=== PATIENT | male | born 1930 | race Caucasian/White ===

== ENCOUNTER 2016-04-06 20:28 | Inpatient (IN) | payer MEDICARE ==
--- NOTE | 2016-04-06 21:01 | EDM.PDOC ---
ED HPI GENERAL MEDICAL PROBLEM - General Chief Complaint: Chest Pain Stated Complaint: CHEST PAIN SOB Time Seen by Provider: 04/06/16 21:01 - History of Present Illness INITIAL COMMENTS - FREE TEXT/NARRATIVE: 86-year-old male presents emergency room with chest pain. When the patient was first interviewed he said everything above his belly button hurt this was later narrowed down to left lower chest. This pain has been going on for about 4 days now. It is not associated with increased shortness of breath and it does not radiate it seems to be left-sided and substernal however sometimes he gets a sensation this all around his chest. This pain has a significant positional component is most aggravated when he is laying on one of his 2 sides. Patient has a history of coronary artery disease he's nearly 30 years from a bypass surgery. Patient is not on blood thinners but he does take a daily aspirin. Patient lives at home and is fairly functional. Patient denies any leg pain or leg swelling. Left Chest Pain Score (Numeric/FACES): 4 - Related Data Allergies Allergy/AdvReac Type Severity Reaction Status Date / Time No Known Allergies Allergy Verified 04/06/16 20:40 Home Meds: Home Meds Metoprolol Tartrate 50 mg PO BID 08/16/13 [History] Baby Aspirin. 2 tab PO DAILY 10/11/13 [History] Acetaminophen/HYDROcodone [[place] 325-5 MG] 1 - 2 tab PO Q6H PRN #21 tab [Rx] Multivitamin/Iron/Folic Acid [Centrum Complete Multivit] 1 tab PO DAILY [History] amLODIPine Besylate/Benazepril [Amlodipine-Benazepril 10-20 MG] 10 - 20 mg PO DAILY 10/22/15 [History] Tamsulosin HCl 0.4 mg PO DAILY 04/06/16 [History] Past Medical History Cardiovascular History: Reports: CAD, Heart Failure, Heart murmur, Hypertension , SOB on exertion Respiratory History: Reports: COPD Gastrointestinal History: Reports: GERD Genitourinary History: Reports: BPH Musculoskeletal History: Reports: Arthritis, Osteoarthritis Oncologic (Cancer) History: Reports: Other (see below) Other Oncologic History: lip cancer - Past Surgical History HEENT Surgical History: Reports: Cataract surgery Cardiovascular Surgical History: Reports: Coronary artery bypass Social & Family History - Family History Family Medical History: Noncontributory - Tobacco Use Smoking Status *Q: Former Smoker Years of Tobacco use: 65 Packs/Tins Daily: 1 Used Tobacco, but Quit: Yes Month Tobacco Last Used: 14 yrs Tobacco Use Comment: quit 40 years ago Second Hand Smoke Exposure: No - Caffeine Use Caffeine Use: Reports: None - Alcohol Use Days Per Week of Alcohol Use: 0 - Recreational Drug Use Recreational Drug Use: No - Living Situation & Occupation Living situation: Reports: Occupation: retired ED ROS GENERAL - Review of Systems Review Of Systems: See Below Constitutional: Reports: no symptoms HEENT: Reports: No symptoms Respiratory: Reports: pleuritic chest pain. Denies: shortness of breath, cough , sputum Cardiovascular: Reports: Chest pain. Denies: Dyspnea on exertion, Palpitations GI/Abdominal: Reports: No symptoms : Reports: no symptoms Musculoskeletal: Reports: no symptoms Skin: Reports: no symptoms Neurological: Reports: no symptoms Psychiatric: Reports: No symptoms Hematologic/Lymphatic: Reports: no symptoms Immunologic: Reports: no symptoms ED EXAM, GENERAL - Physical Exam Exam: See Below Exam Limited By: No limitations General Appearance: alert, no apparent distress Head: atraumatic, normocephalic Neck: normal inspection, supple, non-tender, full range of motion. No: lymphadenopathy (L), lymphadenopathy (R) Respiratory/Chest: no respiratory distress, lungs clear, normal breath sounds, no accessory muscle use Cardiovascular: regular rate, rhythm, no edema, no murmur GI/Abdominal: normal bowel sounds, soft, non tender, no organomegaly, no distention, no abnormal bruit, no mass Back Exam: normal inspection. No: CVA tenderness (L), CVA tenderness (R) Extremities: normal inspection, non-tender, no pedal edema Neurological: alert, oriented, normal cognition Skin Exam: Warm, Dry EKG INTERPRETATION EKG Date: 04/06/16 Rhythm: NSR [place]: LAD-left axis deviation P-wave: absent (Sinus driven first degree AV block) QRS: other (Left ventricular hypertrophy) ST-T: other (Specific nondiagnostic changes nondiagnostic ST depression inferior and lateral) QT: normal Comparison: NA - no prior EKG EKG Interpretation Comments: Abnormal EKG no changes from October of this last year Course - Vital Signs Last Recorded V/S: Last Vital Signs Temp 36.3 C 04/06/16 20:36 Pulse 67 04/06/16 20:36 Resp 16 04/06/16 20:36 BP 189/75 H 04/06/16 20:36 Pulse Ox 94 L 04/06/16 20:36 - Orders/Labs/Meds Orders: Active Orders 24 hr Category Date Time Status EKG 12 Lead [EKG Documentation Completion] [RC] STAT Care 04/06/16 20:42 Active Chest 1V Frontal [CR] Stat Exams 04/06/16 20:46 Taken CBC W/O DIFF,HEMOGRAM [HEME] MOTH@0700 Lab 04/08/16 07:00 Ordered CBC W/O DIFF,HEMOGRAM [HEME] MOTH@0700 Lab 04/12/16 07:00 Ordered CBC W/O DIFF,HEMOGRAM [HEME] MOTH@0700 Lab 04/15/16 07:00 Ordered CBC W/O DIFF,HEMOGRAM [HEME] MOTH@0700 Lab 04/19/16 07:00 Ordered CBC W/O DIFF,HEMOGRAM [HEME] MOTH@0700 Lab 04/22/16 07:00 Ordered CBC W/O DIFF,HEMOGRAM [HEME] MOTH@0700 Lab 04/26/16 07:00 Ordered Heparin Sodium/D5W [Heparin 25,000 Units in D5W 500 ML] Med 04/06/16 22:30 Active 25,000 units in 500 ml IV TITRATE Medication Orders Heparin Sodium/Dextrose (Heparin 25,000 Units In D5w 500 Ml) 25,000 units in 500 mls @ 23.133 mls/hr IV TITRATE ROSALEE; 15 UNITS/KG/HR PRN Reason: Protocol Last Admin: 04/06/16 22:34 Dose: 23.133 mls/hr Labs: Laboratory Tests 04/06/16 04/06/16 04/06/16 Range/Units 20:35 20:35 20:35 WBC 8.39 (4.23-9.07) K/mm3 RBC 4.39 L (4.63-6.08) M/mm3 Hgb 12.7 L (13.7-17.5) gm/L Hct 39.5 L (40.1-51.0) % MCV 90.0 (79.0-92.2) fl MCH 28.9 (25.7-32.2) pg MCHC 32.2 (32.2-35.5) g/dl RDW Std Deviation 48.9 H (35.1-43.9) fL Plt Count 233 (163-337) K/mm3 MPV 11.5 (9.4-12.3) fl Neut % (Auto) 65.8 (34.0-67.9) % Lymph % (Auto) 18.5 L (21.8-53.1) % [place] % (Auto) 12.4 H (5.3-12.2) % Eos % (Auto) 2.4 (0.8-7.0) Baso % (Auto) 0.5 (0.1-1.2) % Neut # 5.53 H (1.78-5.38) K/mm3 Lymph # 1.55 (1.32-3.57) K/mm3 [place] # 1.04 H (0.30-0.82) K/mm3 Eos # 0.20 (0.04-0.54) K/mm3 Baso # 0.04 (0.01-0.08) K/mm3 D-Dimer, Quantitative 4.99 H (0.19-0.59) mg/L Sodium 140 (136-145) mEq/L Potassium 4.7 (3.5-5.1) mEq/L Chloride 107 (98-107) mEq/L Carbon Dioxide 22 (21-32) mEq/L Anion Gap 15.7 H (5-15) BUN 41 H (7-18) mg/dL Creatinine 2.9 H (0.7-1.3) mg/dL Est Cr Clr Drug Dosing 15.59 mL/min Estimated GFR (MDRD) 21 (>60) mL/min BUN/Creatinine Ratio 14.1 (14-18) Glucose 94 (74-106) mg/dL Calcium 8.4 L (8.5-10.1) mg/dL Total Bilirubin 0.4 (0.2-1.0) mg/dL AST 24 (15-37) U/L ALT 20 (16-63) U/L Alkaline Phosphatase 68 (46-116) U/L Troponin I (0.00-0.056) ng/mL Total Protein 7.4 (6.4-8.2) g/dl Albumin 3.8 (3.4-5.0) g/dl Globulin 3.6 gm/dL Albumin/Globulin Ratio 1.1 (1-2) 04/06/16 Range/Units 20:35 WBC (4.23-9.07) K/mm3 RBC (4.63-6.08) M/mm3 Hgb (13.7-17.5) gm/L Hct (40.1-51.0) % MCV (79.0-92.2) fl MCH (25.7-32.2) pg MCHC (32.2-35.5) g/dl RDW Std Deviation (35.1-43.9) fL Plt Count (163-337) K/mm3 MPV (9.4-12.3) fl Neut % (Auto) (34.0-67.9) % Lymph % (Auto) (21.8-53.1) % [place] % (Auto) (5.3-12.2) % Eos % (Auto) (0.8-7.0) Baso % (Auto) (0.1-1.2) % Neut # (1.78-5.38) K/mm3 Lymph # (1.32-3.57) K/mm3 [place] # (0.30-0.82) K/mm3 Eos # (0.04-0.54) K/mm3 Baso # (0.01-0.08) K/mm3 D-Dimer, Quantitative (0.19-0.59) mg/L Sodium (136-145) mEq/L Potassium (3.5-5.1) mEq/L Chloride (98-107) mEq/L Carbon Dioxide (21-32) mEq/L Anion Gap (5-15) BUN (7-18) mg/dL Creatinine (0.7-1.3) mg/dL Est Cr Clr Drug Dosing mL/min Estimated GFR (MDRD) (>60) mL/min BUN/Creatinine Ratio (14-18) Glucose (74-106) mg/dL Calcium (8.5-10.1) mg/dL Total Bilirubin (0.2-1.0) mg/dL AST (15-37) U/L ALT (16-63) U/L Alkaline Phosphatase (46-116) U/L Troponin I 0.432 H* (0.00-0.056) ng/mL Total Protein (6.4-8.2) g/dl Albumin (3.4-5.0) g/dl Globulin gm/dL Albumin/Globulin Ratio (1-2) Meds: Medications Generic Name Dose Route Start Last Admin Trade Name Freq PRN Reason Stop Dose Admin Heparin Sodium/Dextrose 25,000 units in 500 mls @ 23.133 mls/hr 04/06/16 22: 30 04/06/16 22:34 Heparin 25,000 Units In D5w 500 Ml IV 23.133 mls/hr TITRATE ROSALEE Administration Protocol 15 UNITS/KG/HR Discontinued Medications Generic Name Dose Route Start Last Admin Trade Name Freq PRN Reason Stop Dose Admin Heparin Sodium (Porcine) 4,000 units 04/06/16 22:22 04/06/16 22:33 Heparin Sodium IVPUSH 04/06/16 22:23 4,000 units ONETIME ONE Administration - Re-Assessments/Exams Free Text/Narrative Re-Assessment/Exam: 04/06/16 22:57 Single view AP chest nondiagnostic he is cardiomegaly post surgical changes noted questionable haziness the left lower lobe I believe most of this is positional laboratory evaluation concerning for some renal insufficiency with a creatinine of 2.9 troponin is elevated at 0.43 to, d-dimer is elevated at 4.99 certainly cannot exclude coronary cause for this gentleman to discomfort it seems to be more positional worse when he is laying on his side with his renal function cannot do a CTA at this point. Discussed CODE STATUS with the gentleman his wishes are to be DO NOT RESUSCITATE. He does not think he wants aggressive intervention done at this time however the family did request to go to [place] however both hospitals in [place] are on diversion. This is explained to the son and the daughter and the [id number] who agreed that the best step should be to keep him here. Case discussed with Dr. Nascimento our hospitalist who will admit. Departure - Departure Time of Disposition: 22:04 Disposition: Admitted As Inpatient 67 Clinical Impression: Chest pain, Renal insufficiency, Elevated troponin, Elevated d-dimer - My Orders Last 24 Hours: My Active Orders 04/06/16 20:42 EKG 12 Lead [EKG Documentation Completion] [RC] STAT 04/06/16 22:30 Heparin Sodium/D5W [Heparin 25,000 Units in D5W 500 ML] 25,000 units in 500 ml IV TITRATE 04/08/16 07:00 CBC W/O DIFF,HEMOGRAM [HEME] MOTH@69904/12/16 07:00 CBC W/O DIFF,HEMOGRAM [HEME] MOTH@69904/15/16 07:00 CBC W/O DIFF,HEMOGRAM [HEME] MOTH@69904/19/16 07:00 CBC W/O DIFF,HEMOGRAM [HEME] MOTH@69904/22/16 07:00 CBC W/O DIFF,HEMOGRAM [HEME] MOTH@69904/26/16 07:00 CBC W/O DIFF,HEMOGRAM [HEME] MOTH@07 - Assessment/Plan Last 24 Hours: My Active Orders 04/06/16 20:42 EKG 12 Lead [EKG Documentation Completion] [RC] STAT 04/06/16 22:30 Heparin Sodium/D5W [Heparin 25,000 Units in D5W 500 ML] 25,000 units in 500 ml IV TITRATE 04/08/16 07:00 CBC W/O DIFF,HEMOGRAM [HEME] MOTH@69904/12/16 07:00 CBC W/O DIFF,HEMOGRAM [HEME] MOTH@69904/15/16 07:00 CBC W/O DIFF,HEMOGRAM [HEME] MOTH@69904/19/16 07:00 CBC W/O DIFF,HEMOGRAM [HEME] MOTH@69904/22/16 07:00 CBC W/O DIFF,HEMOGRAM [HEME] MOTH@69904/26/16 07:00 CBC W/O DIFF,HEMOGRAM [HEME] MOTH@699
[2016-04-06] MEDS ORDERED: Heparin Sodium 5,000 Units/ML Vial IVPUSH ONE (22:22)
[2016-04-06] MEDS ORDERED: Heparin Sodium/D5W 25,000 UNITS/500 ML BAG IV SCH (22:30)
[2016-04-06] MEDS ORDERED: Sodium Chloride 0.45% 1,000 ML IV SCH (23:45)
[2016-04-06] MEDS ORDERED: Metoprolol Tartrate 50 MG Tab PO SCH (23:45)
[2016-04-07] MEDS ORDERED: Temazepam 15 MG Cap PO PRN (00:29)
[2016-04-07] MEDS ORDERED: Acetaminophen/HYDROcodone 325-5 MG Tab PO PRN (03:48)
[2016-04-07] MEDS ORDERED: Nitroglycerin 0.4 MG Tab.SL SL ONE (05:35)
[2016-04-07] MEDS ORDERED: Nitroglycerin 0.4 MG Tab.SL ONE (05:42)
[2016-04-07 07:06] VITALS: BP 187/70
--- NOTE | 2016-04-07 10:39 | CR ---
Chest: Portable view of the chest was obtained. Comparison: Previous chest x-ray of 10/22/15. Heart size slightly enlarged. Tortuous thoracic aorta is seen. Sternotomy wires are present. Lungs are clear. Bony structures are grossly intact. Impression: 1. Nothing acute is identified. Diagnostic code #2
[2016-04-07] MEDS ORDERED: Temazepam 15 MG Cap PO SCH (21:00)
--- NOTE | 2016-06-04 13:43 | PCM.HP ---
H&P History of Present Illness - General Date of Service: 06/05/16 Admit Problem/Dx: Admission Diagnosis/Problem Admission Diagnosis/Problem Chest pain Source of Information: Provider - History of Present Illness Initial Comments - Free Text/Narative: 86 year old male with PMH of CHF, CAD, HTN, COPD was admitted for chest pain evaluation. The patient was not interviewed or examined by the hospitalist service before transfer to [place]. The transfer was arranged by the ED physician of record, Dr Newman arranged for care at [facility] in [place], accepting phsician, Dr Pandya. The patient was moved from the [place] telemetry section to the ED while awaiting transfer. The occurrence of events as well as physical assessment are per healthcare providers on hand including Dr Newman as well as the nursing staff. No additional comments can be provided, transfer for a higher level of care was made for chest pain/ACS. Left Chest Pain Score (Numeric/FACES): 7 - Related Data Allergies/Adverse Reactions: Allergies Allergy/AdvReac Type Severity Reaction Status Date / Time No Known Allergies Allergy Verified 04/06/16 20:40 Home Medications: Home Meds Metoprolol Tartrate 50 mg PO BID 08/16/13 [History] Baby Aspirin. 2 tab PO DAILY 10/11/13 [History] Acetaminophen/HYDROcodone [[place] 325-5 MG] 1 - 2 tab PO Q6H PRN #21 tab [Rx] Multivitamin/Iron/Folic Acid [Centrum Complete Multivit] 1 tab PO DAILY [History] amLODIPine Besylate/Benazepril [Amlodipine-Benazepril 10-20 MG] 10 - 20 mg PO DAILY 10/22/15 [History] Tamsulosin HCl 0.4 mg PO DAILY 04/06/16 [History] Mag Hydrox/Al Hydrox/Simeth [Maalox Maximum Strength Susp] 30 ml PO Q6H PRN [History] Past Medical History HEENT History: Reports: Hard of hearing, Impaired vision Cardiovascular History: Reports: CAD, Heart Failure, Heart murmur, Hypertension , SOB on exertion Respiratory History: Reports: COPD Gastrointestinal History: Reports: GERD Genitourinary History: Reports: BPH Musculoskeletal History: Reports: Arthritis, Osteoarthritis Oncologic (Cancer) History: Reports: Other (see below) Other Oncologic History: lip cancer - Past Surgical History HEENT Surgical History: Reports: Cataract surgery Cardiovascular Surgical History: Reports: Coronary artery bypass Male Surgical History: Reports: None Oncologic Surgical History: Reports: Other (see below) Other Oncologic Surgeries/Procedures: 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 Dermatological Surgical History: Reports: None Social & Family History - Family History Family Medical History: Noncontributory - Tobacco Use Smoking Status *Q: Former Smoker Years of Tobacco use: 65 Packs/Tins Daily: 1 Used Tobacco, but Quit: Yes Month Tobacco Last Used: 45 years ago Tobacco Use Comment: quit 40 years ago Second Hand Smoke Exposure: No - Caffeine Use Caffeine Use: Reports: Coffee - Alcohol Use Days Per Week of Alcohol Use: 0 - Recreational Drug Use Recreational Drug Use: No - Living Situation & Occupation Living situation: Reports: Occupation: retired H&P Review of Systems - Review of Systems: Review Of Systems: See Below Exam - Exam Exam: See Below - Vital Signs Vital Signs: Last Vital Signs Temp 36.3 C 04/07/16 06:22 Pulse 58 L 04/07/16 06:22 Resp 18 04/07/16 06:22 BP 187/70 H 04/07/16 06:22 Pulse Ox 94 L 04/07/16 06:22 Weight: 78.653 kg - Patient Data Result Diagrams: 04/06/16 20:35 04/06/16 20:35 *Q Meaningful Use (ADM) - VTE *Q VTE Criteria *Q: - Stroke *Q Stroke Criteria *Q: - AMI *Q AMI Criteria *Q: Problem List Initiated/Reviewed/Updated: Yes
--- NOTE | 2016-06-04 13:48 | PCM.DCSUM1 ---
Discharge Summary - Hospital Course Free Text/Narrative:: 86 year old male transferred to [facility] in [place], [place]. Accepted by Dr Pandya, carol as well as care provided by ED, Dr Newman. Per [place] telemetry protocol, she had not been seen before transfer. Comments regarding recurrence of CP as well as possible ECG change require review of ED H and P. - Discharge Data Discharge Date: 04/07/16 Discharge Disposition: DC/Tfer to Acute Hospital 02 Condition: Good - Patient Summary/Data Consults: Consultations 04/06/16 23:[address] Judge [CONS] Routine - Discharge Plan Home Medications: Home Meds Metoprolol Tartrate 50 mg PO BID 08/16/13 [History] Baby Aspirin. 2 tab PO DAILY 10/11/13 [History] Acetaminophen/HYDROcodone [[place] 325-5 MG] 1 - 2 tab PO Q6H PRN #21 tab [Rx] Multivitamin/Iron/Folic Acid [Centrum Complete Multivit] 1 tab PO DAILY [History] amLODIPine Besylate/Benazepril [Amlodipine-Benazepril 10-20 MG] 10 - 20 mg PO DAILY 10/22/15 [History] Tamsulosin HCl 0.4 mg PO DAILY 04/06/16 [History] Mag Hydrox/Al Hydrox/Simeth [Maalox Maximum Strength Susp] 30 ml PO Q6H PRN [History] Forms: ED Department Discharge Referrals: Home Kaba MD [Primary Care Provider] - - General Info Date of Service: 04/07/16 - Patient Data Vitals - Most Recent: Last Vital Signs Temp 36.3 C 04/07/16 06:22 Pulse 58 L 04/07/16 06:22 Resp 18 04/07/16 06:22 BP 187/70 H 04/07/16 06:22 Pulse Ox 94 L 04/07/16 06:22 Weight - Most Recent: 78.653 kg Med Orders - Current: Current Medications Discontinued Medications Acetaminophen/Hydrocodone Bitart ([place] 325-5 Mg) 1 tab PO Q4H PRN PRN Reason: Pain Heparin Sodium (Porcine) (Heparin Sodium) 4,000 units IVPUSH ONETIME ONE Stop: 04/06/16 22:23 Last Admin: 04/06/16 22:33 Dose: 4,000 units Heparin Sodium/Dextrose (Heparin 25,000 Units In D5w 500 Ml) 25,000 units in 500 mls @ 23.133 mls/hr IV TITRATE ROSALEE; 15 UNITS/KG/HR PRN Reason: Protocol Last Admin: 04/06/16 22:34 Dose: 23.133 mls/hr Sodium Chloride (Sodium Chloride 0.45%) 1,000 mls @ 75 mls/hr IV ASDIRECTED ROSALEE Last Admin: 04/07/16 00:41 Dose: 75 mls/hr Metoprolol Tartrate (Lopressor) 50 mg PO BID ROSALEE Last Admin: 04/07/16 00:42 Dose: 50 mg Nitroglycerin (Nitrostat) 0.4 mg SL ONETIME ONE Stop: 04/07/16 05:36 Last Admin: 04/07/16 05:38 Dose: 0.4 mg Nitroglycerin (Nitrostat) Confirm Administered Dose 0.4 mg .ROUTE .STK-MED ONE Stop: 04/07/16 05:43 Temazepam (Restoril) 15 mg PO BEDTIME ROSALEE Temazepam (Restoril) 15 mg PO BEDTIME PRN PRN Reason: Insomnia Last Admin: 04/07/16 00:42 Dose: 15 mg *Q Meaningful Use (DIS) - VTE *Q VTE Criteria *Q: - Stroke *Q Stroke Criteria *Q: - AMI *Q AMI Criteria *Q:
== END 2016-04-07 05:20 | DRG 313 ==
LOC: JD.ED 20:28 → JD.MS 22:48 → JD.ICU 04-07 05:10
PROVIDERS: ADMIT Internal Medicine Cardiovascular Disease; ATTEND Internal Medicine Cardiovascular Disease
DX: R07.9 Chest pain, unspecified (principal); R74.9 Abnormal serum enzyme level, unspecified; N28.9 Disorder of kidney and ureter, unspecified; R79.1 Abnormal coagulation profile; I25.810 Atherosclerosis of coronary artery bypass graft(s) without angina pectoris; I11.0 Hypertensive heart disease with heart failure; I50.9 Heart failure, unspecified; J44.9 Chronic obstructive pulmonary disease, unspecified; Z79.82 Long term (current) use of aspirin; Z79.899 Other long term (current) drug therapy; H91.90 Unspecified hearing loss, unspecified ear; K21.9 Gastro-esophageal reflux disease without esophagitis; N40.0 Benign prostatic hyperplasia without lower urinary tract symptoms; M19.90 Unspecified osteoarthritis, unspecified site; Z87.891 Personal history of nicotine dependence
CPT/HCPCS: 36415; 71010; 80053; 84484; 85025; 85379; 93005; 96365; 99285; J1644 ×2; 85730; A9270-GY; J7030

== ENCOUNTER 2016-06-13 12:15 | Emergency (ER) | payer MEDICARE, OTHER ==
[2016-06-13 12:38] VITALS: BP 177/61
--- NOTE | 2016-06-13 13:48 | EDM.PDOC ---
ED HPI GI/ABDOMINAL - General Chief Complaint: Abdominal Pain Stated Complaint: ABDOMINAL PAIN Time Seen by Provider: 06/13/16 13:14 Source of Information: Reports: Patient, Family (Daughter), RN notes reviewed History Limitations: Reports: No limitations - History of Present Illness INITIAL COMMENTS - FREE TEXT/NARRATIVE: The patient states that he has had central abdominal pain for the past 10 days. He cannot describe the character, other than "it hurts a lot". The pain will come and go, lasting approximately 15 minutes, with at least several hours in between episodes. He states that she feels better if he drinks ice water, but food and position have no effect. He reports having some nausea, but denies emesis. He has chronic constipation, for which he takes Ex-lax, and his bowel movements have not changed. Of note, the patient's list of medicines include [place] 5/325, one to 2 tablets every 6 hours PRN. He denies having recent diarrhea, urinary symptoms, or fever. No prior similar symptoms in He states that he saw Dr. Neumann this past 06/11/2016. He believes that blood work was done, but he is not sure what the results may have been. He states that he is scheduled for an ultrasound, probably of the right upper quadrant, tomorrow, 06/14/2016. The patient's last oral solid food was yesterday, but his last oral liquid intake was at 11:30 this morning. - Related Data Allergies/ADRs: Allergies Allergy/AdvReac Type Severity Reaction Status Date / Time No Known Allergies Allergy Verified 06/13/16 12:33 Home Meds: Home Meds Baby Aspirin. 2 tab PO DAILY 10/11/13 [History] Acetaminophen/HYDROcodone [[place] 325-5 MG] 1 - 2 tab PO Q6H PRN #21 tab [Rx] Multivitamin/Iron/Folic Acid [Centrum Complete Multivit] 1 tab PO DAILY [History] amLODIPine Besylate/Benazepril [Amlodipine-Benazepril 10-20 MG] 10 mg PO DAILY 10/22/15 [History] Benazepril [Lotensin] 20 mg PO DAILY 06/13/16 [History] Furosemide 20 mg PO DAILY 06/13/16 [History] Isosorbide Mononitrate [Imdur] 30 mg PO DAILY 06/13/16 [History] Nitroglycerin [Nitrostat] 0.4 mg SL ASDIRECTED PRN 06/13/16 [History] atorvaSTATin [Lipitor] 80 mg PO BEDTIME 06/13/16 [History] Past Medical History HEENT History: Reports: Hard of hearing, Impaired vision Cardiovascular History: Reports: CAD, Heart Failure, High cholesterol, Hypertension Genitourinary History: Reports: Chronic renal insuffiency Musculoskeletal History: Reports: Arthritis - Infectious Disease History Infectious Disease History: Reports: Mumps - Past Surgical History HEENT Surgical History: Reports: Cataract surgery Cardiovascular Surgical History: Reports: Coronary artery bypass (x 3 vessel) Oncologic Surgical History: Reports: Other (see below) (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) Social & Family History - Family History Family Medical History: Noncontributory - Tobacco Use Smoking Status *Q: Former Smoker Tobacco Use Within Last Twelve Months: Snuff/Dip (1 pack per day) Years of Tobacco use: 40 Packs/Tins Daily: 1 Used Tobacco, but Quit: Yes Month Tobacco Last Used: 1979 Second Hand Smoke Exposure: No - Caffeine Use Caffeine Use: Reports: None - Alcohol Use Alcohol Use History: No Days Per Week of Alcohol Use: 0 - Recreational Drug Use Recreational Drug Use: No - Living Situation & Occupation Living situation: Reports: , with spouse Occupation: retired ED ROS GENERAL - Review of Systems Review Of Systems: See Below Constitutional: Reports: no symptoms. Denies: fever HEENT: Reports: No symptoms Respiratory: Reports: No Symptoms Cardiovascular: Reports: No symptoms Endocrine: Reports: no symptoms GI/Abdominal: Reports: Abdominal pain (as per the HPI), Constipation (as per the HPI), Nausea. Denies: Diarrhea, Vomiting : Reports: no symptoms. Denies: dysuria Musculoskeletal: Reports: no symptoms Skin: Reports: no symptoms Neurological: Reports: No Symptoms Psychiatric: Reports: No symptoms Hematologic/Lymphatic: Reports: no symptoms Immunologic: Reports: no symptoms ED EXAM, GI/ABD - Physical Exam Exam: See Below Exam Limited By: No limitations General Appearance: alert, WD/WN, no apparent distress Eyes: bilateral: normal appearance, EOMI Ears: normal external exam, hearing grossly normal Nose: normal inspection, no blood Throat/Mouth: Normal inspection, Normal lips, Normal voice, No airway compromise Head: atraumatic, normocephalic Neck: normal inspection, full range of motion Respiratory/Chest: no respiratory distress, lungs clear, normal breath sounds, no accessory muscle use Cardiovascular: normal peripheral pulses, regular rate, rhythm, no edema, no gallop, no JVD, no rub, systolic murmur (3/6, heard across the precordium, but best at the apex, consistent with mitral regurgitation.) GI/Abdominal: normal bowel sounds, soft, non tender, no organomegaly, no distention, no abnormal bruit, no mass. No: McBurney's sign, Kenny's sign Back Exam: normal inspection, full range of motion. No: CVA tenderness (L), CVA tenderness (R) Extremities: normal inspection, normal range of motion, normal capillary refill Neurological: alert, oriented, normal cognition, no motor/sensory deficits Psychiatric: normal affect Skin Exam: Warm, Dry, Intact, Normal color, No rash Lymphatic: no adenopathy Course - Vital Signs Last Recorded V/S: Last Vital Signs Temp 36.6 C 06/13/16 12:33 Pulse 75 06/13/16 15:30 Resp 15 06/13/16 15:30 BP 177/61 H 06/13/16 12:33 Pulse Ox 98 06/13/16 15:30 - Orders/Labs/Meds Labs: Laboratory Tests 06/13/16 06/13/16 06/13/16 Range/Units 13:00 13:00 14:00 WBC 8.85 (4.23-9.07) K/mm3 RBC 3.47 L (4.63-6.08) M/mm3 Hgb 10.2 L (13.7-17.5) gm/L Hct 32.6 L (40.1-51.0) % MCV 93.9 H (79.0-92.2) fl MCH 29.4 (25.7-32.2) pg MCHC 31.3 L (32.2-35.5) g/dl RDW Std Deviation 50.1 H (35.1-43.9) fL Plt Count 238 (163-337) K/mm3 MPV 12.0 (9.4-12.3) fl Neutrophils % (Manual) 63 H (40-60) % Band Neutrophils % 6 (0-10) % Lymphocytes % (Manual) 16 L (20-40) % Atypical Lymphs % 0 % Monocytes % (Manual) 6 (2-10) % Eosinophils % (Manual) 9 H (0.8-7.0) % Basophils % (Manual) 0 L (0.2-1.2) Platelet Estimate Adequate RBC Morph Comment Normal Sodium 140 (136-145) mEq/L Potassium 4.4 (3.5-5.1) mEq/L Chloride 106 (98-107) mEq/L Carbon Dioxide 22 (21-32) mEq/L Anion Gap 16.4 H (5-15) BUN 24 H (7-18) mg/dL Creatinine 2.2 H (0.7-1.3) mg/dL Est Cr Clr Drug Dosing 20.56 mL/min Estimated GFR (MDRD) 29 (>60) mL/min BUN/Creatinine Ratio 10.9 L (14-18) Glucose 169 H (83-115) mg/dL Calcium 8.5 (8.5-10.1) mg/dL Total Bilirubin 0.8 (0.2-1.0) mg/dL AST 179 H (15-37) U/L ALT 227 H (16-63) U/L Alkaline Phosphatase 329 H (46-116) U/L Total Protein 6.6 (6.4-8.2) g/dl Albumin 2.9 L (3.4-5.0) g/dl Globulin 3.7 gm/dL Albumin/Globulin Ratio 0.8 L (1-2) Lipase 320 (73-393) U/L Urine Color Yellow (Yellow) Urine Appearance Clear (Clear) Urine pH 6.0 (5.0-8.0) Ur Specific [place] 1.010 (1.005-1.030) Urine Protein 1+ H (Negative) Urine Glucose (UA) Negative (Negative) Urine Ketones Negative (Negative) Urine Occult Blood Negative (Negative) Urine Nitrite Negative (Negative) Urine Bilirubin Negative (Negative) Urine Urobilinogen 2.0 H (0.2-1.0) Ur Leukocyte Esterase Negative (Negative) Urine RBC Not seen (0-5) /hpf Urine WBC 0-5 (0-5) /hpf Ur Epithelial Cells Not seen (0-5) /hpf Urine Bacteria Not seen (FEW) /hpf Urine Mucus Not seen (FEW) /hpf - Radiology Interpretation Free Text/Narrative:: KUB appears to demonstrate considerable stool throughout the small and large intestine. No air-fluid levels to suggest SBO. Formal read per the Radiologist pending. - Re-Assessments/Exams Free Text/Narrative Re-Assessment/Exam: 06/13/16 14:53 Test results discussed with the patient and his son. Today's workup finds chronic renal insufficiency, new hyperglycemia, and newly elevated transaminases and alkaline phosphatase, however, none of these findings would cause the intermittent abdominal pain that the patient is complaining of. His KUB demonstrates stool throughout the intestines and colon, which I suspect is the cause of his pain. I am recommending he take [id number] magnesium citrate and enemas to clean himself out. He is scheduled for an ultrasound of the RUQ this coming 06/15/2016. This was not able to be done today, because the patient had recently consumed fluids. Additionally, the patient's abdomen was completely nontender when I examined him, substantially reducing the likelihood of acute cholecystitis. Departure - Departure Time of Disposition: 14:55 Disposition: Home, Self-Care 01 Condition: good Clinical Impression: Abdominal pain of unknown etiology, Increased stool volume, Elevated transaminase level, Elevated alkaline phosphatase level, Hyperglycemia Instructions: Abdominal Pain, Adult, [id number] Referrals: Justice Neumann MD [Primary Care Provider] - Forms: ED Department Discharge Additional Instructions: You were seen in the emergency room today for abdominal pain, on and off for the past 10 days, along with nausea and constipation. Workup in the ER included blood work, a urinalysis, and an x-ray of your abdomen. Your bloodwork shows that you have chronic renal insufficiency (poorly functioning kidneys), newly elevated blood sugar at 169, and elevated liver enzymes. None of these abnormalities cause abdominal pain. The x-ray of your abdomen showed stool throughout your large and small intestines. This may be the cause of your abdominal pain. We are recommending that you try to clean out your intestines with over-the- counter magnesium citrate. Drink half a bottle, and if you do not get significant relief within a few hours, drink the other half of the bottle. Be aware that magnesium citrate may cause significant abdominal cramping. We also suggest [id number] enemas, which may help to clean out hard stool. You are currently scheduled for an ultrasound of your abdomen this coming 06/15/2016. Make sure that you do not eat or drink anything for at least 6 hours prior to the study. Please followup with Dr. Neumann later this week for a recheck of your abnormal blood work, and followup of your ultrasound results. If any other problems, please do not hesitate to return to the ER.
--- NOTE | 2016-06-14 07:14 | CR ---
Abdomen: Supine view of the abdomen was obtained. Comparison: Previous abdominal x-ray of 10/25/09. Mild increased stool seen within portions of the colon. Bowel gas pattern is otherwise unremarkable. Calcifications within the pelvis are compatible with phleboliths as well as arterial calcification. Bony structures are osteopenic. Impression: 1. Mild increased stool within the colon. Other incidental findings. Diagnostic code #2
== END 2016-06-13 15:33 | disposition home or self-care (01) ==
LOC: JD.ED 12:15
DX: R10.9 Unspecified abdominal pain (principal); R74.0 Nonspecific elevation of levels of transaminase and lactic acid dehydrogenase [LDH]; R74.8 Abnormal levels of other serum enzymes; R73.9 Hyperglycemia, unspecified; I25.810 Atherosclerosis of coronary artery bypass graft(s) without angina pectoris; E78.00 Pure hypercholesterolemia, unspecified; I13.0 Hypertensive heart and chronic kidney disease with heart failure and stage 1 through stage 4 chronic kidney disease, or unspecified chronic kidney disease; N18.9 Chronic kidney disease, unspecified; I50.9 Heart failure, unspecified; Z98.49 Cataract extraction status, unspecified eye; Z95.1 Presence of aortocoronary bypass graft; Z87.891 Personal history of nicotine dependence; Z79.82 Long term (current) use of aspirin; Z79.899 Other long term (current) drug therapy
CPT/HCPCS: 36415; 74000; 74000-26; 80053; 81001; 83690; 85025; 99283; 99284

== ENCOUNTER 2016-09-19 22:40 | Emergency (ER) | payer MEDICARE, OTHER ==
[2016-09-19 22:59] VITALS: BP 132/40
[2016-09-19] MEDS ORDERED: Ondansetron 4 MG Tab.DIS PO ONE (23:24)
--- NOTE | 2016-09-19 23:30 | EDM.PDOC ---
ED HPI GENERAL MEDICAL PROBLEM - General Chief Complaint: Back Pain or Injury Stated Complaint: NUMBNESS IN FOOT GENERAL PAIN ALL OVER Time Seen by Provider: 09/19/16 23:11 Source of Information: Reports: Patient, Family (Daughter), Old Records, RN Notes Reviewed History Limitations: Reports: No Limitations - History of Present Illness INITIAL COMMENTS - FREE TEXT/NARRATIVE: The patient states that he has pain that runs from his neck to the bottom of his feet, for the past 5 or 6 months. He has been sleeping a lot, then napping during the day. His right foot has been numb on and off for the past couple of months. He states that x-rays were done last week by his chiropractor, but that he does not have the results yet. He occasionally has an upset stomach, and chronically has nausea and constipation. He does not take anything for his nausea, but he does take Ex-Lax for his constipation. He states that none of these symptoms are new, and he has not had any recent falls or injuries. He states that he is here to get stronger pain medication. He is currently prescribed Neal per Dr. Neumann. Back Pain Score (Numeric/FACES): 4 - Related Data Allergies Allergy/AdvReac Type Severity Reaction Status Date / Time No Known Allergies Allergy Verified 06/13/16 12:33 Home Meds: Home Meds Baby Aspirin. 2 tab PO DAILY 10/11/13 [History] Multivitamin/Iron/Folic Acid [Centrum Complete Multivit] 1 tab PO DAILY [History] amLODIPine Besylate/Benazepril [Amlodipine-Benazepril 10-20 MG] 10 mg PO DAILY 10/22/15 [History] Benazepril [Lotensin] 20 mg PO DAILY 06/13/16 [History] Furosemide 20 mg PO DAILY 06/13/16 [History] Isosorbide Mononitrate [Imdur] 30 mg PO DAILY 06/13/16 [History] Nitroglycerin [Nitrostat] 0.4 mg SL ASDIRECTED PRN 06/13/16 [History] atorvaSTATin [Lipitor] 40 mg PO BEDTIME 06/13/16 [History] Acetaminophen/HYDROcodone [[place] 325-5 MG] 5 - 325 mg PO Q6H PRN 09/19/16 [ History] Carvedilol 6.25 mg PO BID 09/19/16 [History] Ondansetron [Zofran ODT] 1 tab PO Q8H PRN #10 tab.dis 09/19/16 [Rx] hydrALAZINE [Apresoline] 10 mg PO TID 09/19/16 [History] Past Medical History HEENT History: Reports: Hard of Hearing, Impaired Vision Cardiovascular History: Reports: CAD, Heart Failure, High Cholesterol, Hypertension Genitourinary History: Reports: Chronic Renal Insuffiency Musculoskeletal History: Reports: Arthritis - Infectious Disease History Infectious Disease History: Reports: Mumps - Past Surgical History HEENT Surgical History: Reports: Cataract Surgery Cardiovascular Surgical History: Reports: Coronary Artery Bypass (x 3 vessel) Oncologic Surgical History: Reports: Other (See Below) (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) Social & Family History - Family History Family Medical History: Noncontributory - Tobacco Use Smoking Status *Q: Former Smoker Years of Tobacco use: 40 Packs/Tins Daily: 1 Used Tobacco, but Quit: Yes Month Tobacco Last Used: 1979 Second Hand Smoke Exposure: No - Caffeine Use Caffeine Use: Reports: None - Alcohol Use Alcohol Use History: No Days Per Week of Alcohol Use: 0 - Recreational Drug Use Recreational Drug Use: No - Living Situation & Occupation Living situation: Reports: , with Spouse Occupation: Retired ED ROS GENERAL - Review of Systems Review Of Systems: See Below Constitutional: Reports: No Symptoms HEENT: Reports: No Symptoms Respiratory: Reports: No Symptoms Cardiovascular: Reports: No Symptoms Endocrine: Reports: No Symptoms GI/Abdominal: Reports: No Symptoms : Reports: No Symptoms Musculoskeletal: Reports: Neck Pain (as per the HPI), Back Pain (as per the HPI) , Leg Pain (as per the HPI), Foot Pain (as per the HPI) Skin: Reports: No Symptoms Neurological: Reports: No Symptoms Psychiatric: Reports: No Symptoms Hematologic/Lymphatic: Reports: No Symptoms Immunologic: Reports: No Symptoms ED EXAM, GENERAL - Physical Exam Exam: See Below Exam Limited By: No Limitations General Appearance: Alert, WD/WN, No Apparent Distress Eye Exam: Bilateral Eye: Normal Inspection Ears: Normal External Exam, Hearing Grossly Normal Nose: Normal Inspection, No Blood Throat/Mouth: Normal Inspection, Normal Lips, Normal Voice, No Airway Compromise Head: Atraumatic, Normocephalic Neck: Normal Inspection, Full Range of Motion Respiratory/Chest: No Respiratory Distress, Lungs Clear, Normal Breath Sounds, No Accessory Muscle Use Cardiovascular: Normal Peripheral Pulses, Regular Rate, Rhythm, No Gallop, No JVD, No Murmur, No Rub Peripheral Pulses: 4+: Radial (L), Radial (R) GI/Abdominal: Normal Bowel Sounds, Soft, Non-Tender, No Organomegaly, No Distention, No Abnormal Bruit, No Mass (Male) Exam: Deferred Rectal (Males) Exam: Deferred Back Exam: Normal Inspection Extremities: Normal Inspection, Normal Range of Motion, No Pedal Edema, Normal Capillary Refill Neurological: Alert, Oriented, Normal Cognition, No Motor/Sensory Deficits Psychiatric: Normal Affect Skin Exam: Warm, Dry, Intact, Normal Color, No Rash Lymphatic: No Adenopathy Course - Vital Signs Last Recorded V/S: Last Vital Signs Temp 36.2 C 09/19/16 22:58 Pulse 53 L 09/19/16 22:58 Resp 20 09/19/16 22:58 BP 132/40 L 09/19/16 22:58 Pulse Ox 94 L 09/19/16 22:58 - Orders/Labs/Meds Meds: Medications Discontinued Medications Generic Name Dose Route Start Last Admin Trade Name Freq PRN Reason Stop Dose Admin Ondansetron HCl 4 mg 09/19/16 23:24 09/19/16 23:38 Zofran Odt PO 09/19/16 23:25 4 mg ONETIME ONE Administration - Re-Assessments/Exams Free Text/Narrative Re-Assessment/Exam: 09/19/16 23:25 The patient reports chronic back and lower extremity pain, likely due to spinal stenosis, and is requesting stronger pain medication. This will need to be addressed by his single prescriber, Dr. Neumann. He is also reporting recurrent nausea, likely due to the Neal that he takes for his chronic pain. I have ordered a single dose of oral Zofran, and will e-prescribe the same. Departure - Departure Time of Disposition: 23:28 Disposition: Home, Self-Care 01 Condition: Good Clinical Impression: Chronic pain, Nausea - Discharge Information Prescriptions: Ondansetron [Zofran ODT] 1 tab PO Q8H PRN #10 tab.dis PRN Reason: Nausea/Vomiting Instructions: Chronic Pain, Nausea, Adult, [id number] Referrals: Justice Neumann MD [Primary Care Provider] - Forms: ED Department Discharge Additional Instructions: You were seen in the emergency room for chronic back and lower extremity pain, difficulty sleeping, an upset stomach, constipation, and recurrent nausea. You will need to talk to your PCP, Dr. Neumann, about stronger pain medication. You have been started on the anti-nausea medicine Zofran. Dissolve 1 tablet on your tongue up to every 8 hours, as needed for nausea/vomiting. For your constipation, consider Metamucil or MiraLAX, with plenty of water. If any other problems, please do not hesitate to return to the ER.
== END 2016-09-19 23:49 | disposition home or self-care (01) ==
LOC: JD.ED 22:40
DX: R11.0 Nausea (principal); M79.669 Pain in unspecified lower leg; G89.29 Other chronic pain; I13.0 Hypertensive heart and chronic kidney disease with heart failure and stage 1 through stage 4 chronic kidney disease, or unspecified chronic kidney disease; I50.9 Heart failure, unspecified; I25.10 Atherosclerotic heart disease of native coronary artery without angina pectoris; M19.90 Unspecified osteoarthritis, unspecified site; Z98.49 Cataract extraction status, unspecified eye; Z79.899 Other long term (current) drug therapy; Z95.1 Presence of aortocoronary bypass graft; Z87.891 Personal history of nicotine dependence
CPT/HCPCS: 99283; A9270

== ENCOUNTER 2016-09-24 12:54 | Emergency (ER) | payer MEDICARE, OTHER ==
[2016-09-24] MEDS ORDERED: HYDROmorphone 0.5 MG/0.5 ML Syringe IVPUSH ONE ×2 (13:18→15:23)
[2016-09-24] MEDS ORDERED: Aspirin 81 MG Tab.Chew PO ONE (13:18)
[2016-09-24] MEDS ORDERED: Sodium Chloride 0.9% 10 ML Syringe FLUSH PRN ×2 (13:18→16:12)
--- NOTE | 2016-09-24 13:35 | EDM.PDOC ---
ED HPI GENERAL MEDICAL PROBLEM - General Chief Complaint: Chest Pain Stated Complaint: CHEST PAIN Time Seen by Provider: 09/24/16 13:03 Source of Information: Reports: Patient History Limitations: Reports: No Limitations - History of Present Illness INITIAL COMMENTS - FREE TEXT/NARRATIVE: The patient presents with chest pain and low back pain. The chest pain started this morning and it is on the left side. The pain is described as aching. He has no shortness of breath. He is a little nauseated. He has no fever, chills , cough, abdominal pain or vomiting He does have nausea. His biggest complaint is his low back pain. This has been going on for over 5 months and he is frustrated about it and so is his daughter. He says it is in the middle of his low back. He sometimes has pain to the right side and down his leg with some numbness at times. Dr Neumann saw him and has scheduled an MRI of his lumbar spine for next Tuesday. Onset: Gradual Duration: Hour(s): Location: Reports: Chest Quality: Reports: Ache Severity: Moderate Improves with: Reports: None Worsens with: Reports: None Associated Symptoms: Reports: Chest Pain, Nausea/Vomiting, Other (Low back pain) . Denies: Fever/Chills, Headaches, Shortness of Breath Left Chest Pain Score (Numeric/FACES): 5 - Related Data Allergies Allergy/AdvReac Type Severity Reaction Status Date / Time No Known Allergies Allergy Verified 09/24/16 13:05 Home Meds: Home Meds Baby Aspirin. 2 tab PO DAILY 10/11/13 [History] Multivitamin/Iron/Folic Acid [Centrum Complete Multivit] 1 tab PO DAILY [History] amLODIPine Besylate/Benazepril [Amlodipine-Benazepril 10-20 MG] 10 mg PO DAILY 10/22/15 [History] Benazepril [Lotensin] 20 mg PO DAILY 06/13/16 [History] Furosemide 20 mg PO DAILY 06/13/16 [History] Isosorbide Mononitrate [Imdur] 30 mg PO DAILY 06/13/16 [History] Nitroglycerin [Nitrostat] 0.4 mg SL ASDIRECTED PRN 06/13/16 [History] atorvaSTATin [Lipitor] 40 mg PO BEDTIME 06/13/16 [History] Acetaminophen/HYDROcodone [[place] 325-5 MG] 5 - 325 mg PO Q6H PRN 09/19/16 [ History] Carvedilol 6.25 mg PO BID 09/19/16 [History] Ondansetron [Zofran ODT] 1 tab PO Q8H PRN #10 tab.dis 09/19/16 [Rx] hydrALAZINE [Apresoline] 10 mg PO TID 09/19/16 [History] Past Medical History HEENT History: Reports: Hard of Hearing, Impaired Vision Cardiovascular History: Reports: CAD, Heart Failure, High Cholesterol, Hypertension Respiratory History: Reports: COPD Gastrointestinal History: Reports: GERD Genitourinary History: Reports: Chronic Renal Insuffiency Musculoskeletal History: Reports: Arthritis Oncologic (Cancer) History: Reports: Other (See Below) Other Oncologic History: lip cancer - Infectious Disease History Infectious Disease History: Reports: Mumps - Past Surgical History HEENT Surgical History: Reports: Cataract Surgery Cardiovascular Surgical History: Reports: Coronary Artery Bypass Oncologic Surgical History: Reports: Other (See Below) Social & Family History - Family History Family Medical History: Noncontributory - Tobacco Use Smoking Status *Q: Former Smoker Years of Tobacco use: 40 Packs/Tins Daily: 1 Used Tobacco, but Quit: Yes Month Tobacco Last Used: 40 years ago Second Hand Smoke Exposure: No - Caffeine Use Caffeine Use: Reports: Coffee - Alcohol Use Days Per Week of Alcohol Use: 0 - Recreational Drug Use Recreational Drug Use: No - Living Situation & Occupation Living situation: Reports: , with Spouse Occupation: Retired ED ROS GENERAL - Review of Systems Review Of Systems: See Below Constitutional: Reports: No Symptoms HEENT: Reports: No Symptoms Respiratory: Reports: No Symptoms Cardiovascular: Reports: No Symptoms Endocrine: Reports: No Symptoms GI/Abdominal: Reports: No Symptoms : Reports: No Symptoms Musculoskeletal: Reports: Back Pain (Low back pain) Skin: Reports: No Symptoms ED EXAM, GENERAL - Physical Exam Exam: See Below Exam Limited By: No Limitations General Appearance: Alert, No Apparent Distress Ears: Normal External Exam Nose: Normal Inspection Head: Atraumatic, Normocephalic Neck: Normal Inspection Respiratory/Chest: No Respiratory Distress, Lungs Clear, Normal Breath Sounds Cardiovascular: Regular Rate, Rhythm, No Edema, No Murmur GI/Abdominal: Soft, Non-Tender, No Organomegaly, No Mass Back Exam: Normal Inspection Extremities: Normal Inspection EKG INTERPRETATION EKG Date: 09/24/16 Time: 13:03 Rhythm: Other (Sinus bradycardia) Rate (Beats/Min): 57 [place]: Normal P-Wave: Present QRS: Normal ST-T: Depressed (V4, V5, V6) QT: Normal CA/PQ Interval: 1st degree HB Comparison: No Change Course - Vital Signs Last Recorded V/S: Last Vital Signs Temp 97.1 F 09/24/16 15:59 Pulse 62 09/24/16 15:59 Resp 14 09/24/16 15:59 BP 118/50 L 09/24/16 15:59 Pulse Ox 95 09/24/16 15:59 - Orders/Labs/Meds Orders: Active Orders 24 hr Category Date Time Status Cardiac Monitoring [RC] . DIRECTED Care 09/24/16 13:18 Active EKG 12 Lead [EKG Documentation Completion] [RC] STAT Care 09/24/16 13:06 Active Oxygen Therapy [RC] PRN Care 09/24/16 13:18 Active Peripheral IV Care [RC] . DIRECTED Care 09/24/16 13:18 Active Chest 1V Frontal [CR] Stat Exams 09/24/16 13:18 Taken Chest Abdomen Pelvis w Cont [CT] Stat Exams 09/24/16 15:58 Ordered Lumbar Spine wo Cont [CT] Stat Exams 09/24/16 13:19 Taken PATIENT RETYPE [BBK] Stat Lab 09/24/16 13:24 Results RED BLOOD CELLS LP [BBK] Stat Lab 09/24/16 13:24 Results TYPE AND SCREEN [BBK] Stat Lab 09/24/16 13:24 Results Sodium Chloride 0.9% [Normal Saline] 1,000 ml Med 09/24/16 16:00 Active IV ASDIRECTED Sodium Chloride 0.9% [Normal Saline] 100 ml Med 09/24/16 16:15 Active IV ASDIRECTED Sodium Chloride 0.9% [Saline Flush] Med 09/24/16 13:18 Active 10 ml FLUSH ASDIRECTED PRN Sodium Chloride 0.9% [Saline Flush] Med 09/24/16 16:12 Active 10 ml FLUSH ONETIME PRN Peripheral IV Insertion Adult [OM.PC] Stat Oth 09/24/16 13:18 Ordered Transfuse PRBC [Transfuse Red Blood Cells] [COMM] Stat Oth 09/24/16 14:21 Ordered Medication Orders Sodium Chloride (Normal Saline) 1,000 mls @ 150 mls/hr IV ASDIRECTED ROSALEE Sodium Chloride (Normal Saline) 100 mls @ 71 mls/hr IV ASDIRECTED ROSALEE Sodium Chloride (Saline Flush) 10 ml FLUSH ASDIRECTED PRN PRN Reason: Keep Vein Open Last Admin: 09/24/16 13:34 Dose: 10 ml Sodium Chloride (Saline Flush) 10 ml FLUSH ONETIME PRN PRN Reason: IV FLUSH Labs: Laboratory Tests 09/24/16 09/24/16 09/24/16 Range/Units 13:24 13:24 13:24 WBC 9.85 H (4.23-9.07) K/mm3 RBC 2.96 L (4.63-6.08) M/mm3 Hgb 7.7 L (13.7-17.5) gm/L Hct 25.7 L (40.1-51.0) % MCV 86.8 (79.0-92.2) fl MCH 26.0 (25.7-32.2) pg MCHC 30.0 L (32.2-35.5) g/dl RDW Std Deviation 48.2 H (35.1-43.9) fL Plt Count 312 (163-337) K/mm3 MPV 10.1 (9.4-12.3) fl Neut % (Auto) 79.7 H (34.0-67.9) % Lymph % (Auto) 10.4 L (21.8-53.1) % Barton % (Auto) 8.9 (5.3-12.2) % Eos % (Auto) 0.5 L (0.8-7.0) Baso % (Auto) 0.3 (0.1-1.2) % Neut # (Auto) 7.85 H (1.78-5.38) K/mm3 Lymph # (Auto) 1.02 L (1.32-3.57) K/mm3 Barton # (Auto) 0.88 H (0.30-0.82) K/mm3 Eos # (Auto) 0.05 (0.04-0.54) K/mm3 Baso # (Auto) 0.03 (0.01-0.08) K/mm3 Manual Slide Review Abnormal smear Sodium 136 (136-145) mEq/L Potassium 5.0 (3.5-5.1) mEq/L Chloride 104 (98-107) mEq/L Carbon Dioxide 21 (21-32) mEq/L Anion Gap 16.0 H (5-15) BUN 34 H (7-18) mg/dL Creatinine 2.6 H (0.7-1.3) mg/dL Est Cr Clr Drug Dosing 17.51 mL/min Estimated GFR (MDRD) 24 (>60) mL/min BUN/Creatinine Ratio 13.1 L (14-18) Glucose 154 H (83-115) mg/dL Calcium 8.5 (8.5-10.1) mg/dL Total Bilirubin 0.2 (0.2-1.0) mg/dL AST 18 (15-37) U/L ALT 14 L (16-63) U/L Alkaline Phosphatase 85 (46-116) U/L Troponin I 0.217 H* (0.00-0.056) ng/mL Total Protein 7.0 (6.4-8.2) g/dl Albumin 3.1 L (3.4-5.0) g/dl Globulin 3.9 gm/dL Albumin/Globulin Ratio 0.8 L (1-2) Blood Type O POSITIVE Gel Antibody Screen Negative Crossmatch See Detail Meds: Medications Generic Name Dose Route Start Last Admin Trade Name Freq PRN Reason Stop Dose Admin Sodium Chloride 1,000 mls @ 150 mls/hr 09/24/16 16:00 Normal Saline IV ASDIRECTED ROSALEE Sodium Chloride 100 mls @ 71 mls/hr 09/24/16 16:15 Normal Saline IV ASDIRECTED ROSALEE Sodium Chloride 10 ml 09/24/16 13:18 09/24/16 13:34 Saline Flush FLUSH 10 ml ASDIRECTED PRN Administration Keep Vein Open Sodium Chloride 10 ml 09/24/16 16:12 Saline Flush FLUSH ONETIME PRN IV FLUSH Discontinued Medications Generic Name Dose Route Start Last Admin Trade Name Freq PRN Reason Stop Dose Admin Aspirin 324 mg 09/24/16 13:18 09/24/16 13:33 Aspirin PO 09/24/16 13:19 324 mg ONETIME ONE Administration Hydromorphone HCl 0.5 mg 09/24/16 13:18 09/24/16 13:34 Dilaudid IVPUSH 09/24/16 13:19 0.5 mg ONETIME ONE Administration Hydromorphone HCl 0.5 mg 09/24/16 15:23 Dilaudid IVPUSH 09/24/16 15:24 ONETIME ONE Sodium Chloride Confirm 09/24/16 15:29 Normal Saline Administered 09/24/16 15:30 Dose 1,000 mls @ as directed .ROUTE .STK-MED ONE Sodium Chloride 500 mls @ 1,000 mls/hr 09/24/16 15:57 Normal Saline IV 09/24/16 16:26 .BOLUS ONE Iopamidol 100 ml 09/24/16 16:12 Isovue-370 (76%) IVPUSH 09/24/16 16:13 ONETIME ONE Ondansetron HCl 4 mg 09/24/16 14:19 09/24/16 14:39 Zofran Odt PO 09/24/16 14:20 4 mg ONETIME ONE Administration - Re-Assessments/Exams Free Text/Narrative Re-Assessment/Exam: 09/24/16 13:38 I ordered an IV saline lock, labs, EKG, CXR, CT of his lumbar spine, aspirin and dilaudid. 09/24/16 15:32 His EKG shows a 1st degree HB and sinus bradycardia with no acute changes. His WBC was slightly elevated at 9.85. His Hgb was low at 7.7. Back in June his Hgb was 10.2. His stool guiac was negative. I ordered 2 units of PRBCs. His creatinine was 2.6. HIs GFR is 24. He has a history of renal disease. His glucose was elevated at 154. His troponin was elevated at 0.217. He has a history of elevated troponins. Back in his troponin was elevated at 0.471. The radiologist from [facility] called me and the patient has an increased density in the mural thrombus at the peripheray of the 4X3.8cm infrarenal abdominal aortic aneurysm worrisome for impending aneurysm rupture. There is no change in the aortic graft just below the aneurysm extending to just above the bifurcation, uchanged. I talked to my hospitalist Dr Galan and he felt the patient is to complex to take care of him here and so I called [facility]. I am waiting for a call back. 09/24/16 16:[address] Islas the hospitalist auto air conditioning mechanic and Dr Moore the cardiovascular surgeon. Dr Moore wanted a CT angio done. I have ordered that and I also ordered fluids to help protect his kidneys. They did accept the patient regardless of the CT results. He will leave right after the CT. I also talked with Dr Mayfield in the ER to let him know the patient is coming. Departure - Departure Time of Disposition: 16:35 Disposition: DC/Tfer to [facility] 02 Reason for Transfer *Q: Other Condition: Serious Clinical Impression: Elevated troponin I measurement, Chronic renal insufficiency, stage IV (severe) Chest pain Qualifiers: Chest pain type: unspecified Qualified Code(s): R07.9 - Chest pain, unspecified AAA (abdominal aortic aneurysm) Qualifiers: Presence of rupture: without rupture Qualified Code(s): I71.4 - Abdominal aortic aneurysm, without rupture Anemia Qualifiers: Anemia type: other cause Other causes of anemia: other cause, not classified Qualified Code(s): D64.89 - Other specified anemias Compression fracture of L1 lumbar vertebra Qualifiers: Encounter type: initial encounter Fracture type: closed Qualified Code(s): S32.010A - Wedge compression fracture of first lumbar vertebra, initial encounter for closed fracture Forms: ED Department Discharge - My Orders Last 24 Hours: My Active Orders 09/24/16 13:06 EKG 12 Lead [EKG Documentation Completion] [RC] STAT 09/24/16 13:18 Cardiac Monitoring [RC] . DIRECTED Oxygen Therapy [RC] PRN Peripheral IV Care [RC] . DIRECTED Chest 1V Frontal [CR] Stat Sodium Chloride 0.9% [Saline Flush] 10 ml FLUSH ASDIRECTED PRN Peripheral IV Insertion Adult [OM.PC] Stat 09/24/16 13:19 Lumbar Spine wo Cont [CT] Stat 09/24/16 13:24 PATIENT RETYPE [BBK] Stat RED BLOOD CELLS LP [BBK] Stat TYPE AND SCREEN [BBK] Stat 09/24/16 14:21 Transfuse PRBC [Transfuse Red Blood Cells] [COMM] Stat 09/24/16 15:58 Chest Abdomen Pelvis w Cont [CT] Stat 09/24/16 16:00 Sodium Chloride 0.9% [Normal Saline] 1,000 ml IV ASDIRECTED 09/24/16 16:12 Sodium Chloride 0.9% [Saline Flush] 10 ml FLUSH ONETIME PRN 09/24/16 16:15 Sodium Chloride 0.9% [Normal Saline] 100 ml IV ASDIRECTED - Assessment/Plan Last 24 Hours: My Active Orders 09/24/16 13:06 EKG 12 Lead [EKG Documentation Completion] [RC] STAT 09/24/16 13:18 Cardiac Monitoring [RC] . DIRECTED Oxygen Therapy [RC] PRN Peripheral IV Care [RC] . DIRECTED Chest 1V Frontal [CR] Stat Sodium Chloride 0.9% [Saline Flush] 10 ml FLUSH ASDIRECTED PRN Peripheral IV Insertion Adult [OM.PC] Stat 09/24/16 13:19 Lumbar Spine wo Cont [CT] Stat 09/24/16 13:24 PATIENT RETYPE [BBK] Stat RED BLOOD CELLS LP [BBK] Stat TYPE AND SCREEN [BBK] Stat 09/24/16 14:21 Transfuse PRBC [Transfuse Red Blood Cells] [COMM] Stat 09/24/16 15:58 Chest Abdomen Pelvis w Cont [CT] Stat 09/24/16 16:00 Sodium Chloride 0.9% [Normal Saline] 1,000 ml IV ASDIRECTED 09/24/16 16:12 Sodium Chloride 0.9% [Saline Flush] 10 ml FLUSH ONETIME PRN 09/24/16 16:15 Sodium Chloride 0.9% [Normal Saline] 100 ml IV ASDIRECTED
[2016-09-24] MEDS ORDERED: Ondansetron 4 MG Tab.DIS PO ONE (14:19)
[2016-09-24] MEDS ORDERED: Sodium Chloride 0.9% 1,000 ML ONE (15:29)
[2016-09-24 15:48] VITALS: BP 118/50
[2016-09-24] MEDS ORDERED: Sodium Chloride 0.9% 500 ML IV ONE (15:57)
[2016-09-24] MEDS ORDERED: Sodium Chloride 0.9% 1,000 ML IV SCH (16:00)
[2016-09-24] MEDS ORDERED: Iopamidol 755 Mg/ML 100 ML Bottle IVPUSH ONE (16:12)
[2016-09-24] MEDS ORDERED: Sodium Chloride 0.9% 100 ML IV SCH (16:15)
--- NOTE | 2016-09-26 10:32 | CR ---
Chest: Portable view of the chest was obtained. Comparison: Previous chest x-ray of 04/06/16. Heart size is normal. Tortuous thoracic aorta is seen. Vascular calcification is seen. Lungs are clear with no acute infiltrates. Bony structures are osteopenic. Impression: 1. Incidental findings. Nothing acute is identified on portable chest x-ray. Diagnostic code #2
--- NOTE | 2016-09-26 10:34 | CT ---
CT lumbar spine Technique: Multiple axial sections were obtained from the top of T10 inferiorly through the L5-S1 disc. Reconstructed sagittal and coronal images were reviewed. Comparison: No previous lumbar spine imaging is available. Findings: Aneurysm is again noted at the level of the renal arteries. This was described in more detail on CT abdomen and pelvis exam. Mild endplate concavities are seen within L1. Age of this finding is indeterminate. Other vertebral body heights are maintained. Mild disc space narrowing is noted at T10-T11. Other disc spaces are preserved. Vacuum phenomena is noted within the L5-S1 disc. Scattered degenerative apophyseal change is seen throughout the lumbar spine which is most prominent within the lower lumbar levels. Visualized portions of the sacroiliac joints appear within normal limits. No acute fracture line is appreciated. Slight circumferential disc bulge is seen at L3-L4. Mild circumferential disc bulge seen at L4-L5. Mild central canal stenosis noted at L4-L5. Cysts noted within the left kidney. Hiatal hernia is identified on this exam. Impression: 1. Mild endplate concavities of L1, age is indeterminate. MRI would be needed to further evaluate for age if clinically indicated. 2. Abdominal aortic aneurysm is seen as described on subsequent CT abdomen and pelvis exam. 3. Mild degenerative change as described above. Diagnostic code #3 I agree with preliminary report issued by [facility] ([facility] report finalized on 09/24/16, 4:05 PM Central Time)
--- NOTE | 2016-09-26 11:21 | CT ---
Addendum: Body of the report mentions descending aorta on 2 sentences. Following is the corrected measurements of the thoracic aorta. Ascending aorta is mildly ectatic at 4.4 cm. Descending aorta measures 3.2 cm. Other portions of the dictation remain the same. --- Addendum1 above dictated on [10/01/2016 17:56] by [Jony Hinson, Evan Gonzalez] --- --- Addendum1 above signed on [10/01/2016 17:58] by [Jony Hinson, Evan Gonzalez] --- --- Original report below dictated on [09/25/2016 09:36] by [Jony Hinson Hilton J.] --- --- Original report below signed on [09/26/2016 11:18] by [Jony Hinson, Evan Gonzalez] --- CT chest Technique: Multiple axial sections were obtained from above the lung apices inferiorly through the lung bases. Intravenous contrast was utilized. Findings: Visualized portions of the pulmonary arteries show no filling defects to indicate pulmonary embolism. Heart is mildly enlarged. Thoracic aorta shows atherosclerotic calcification. Descending aorta is mildly ectatic at 4.4 cm. Descending aorta measures 3.2 cm. Main pulmonary arteries are slightly prominent in size. Mediastinum and hilar regions show no adenopathy or mass. Small to moderate sized hiatal hernia is seen with distal esophageal wall thickening. No findings of dissection are seen. Slight scarring and atelectasis is seen within both lung bases. Mild emphysematous change is seen. Impression: 1. Hiatal hernia with esophageal wall thickening. This wall thickening may relate to reflux esophagitis. 2. Other incidental findings as noted above. Nothing acute is identified. Diagnostic code #3 I agree with preliminary report issued by [facility] ([facility] report finalized on 09/24/16, 7:41 PM Central Time) CT abdomen and pelvis Technique: Multiple axial sections were obtained from above the dome of the diaphragm inferiorly through the pubic symphysis. Intravenous contrast was utilized. No oral contrast has been given. Comparison: Previous CT abdomen and pelvis exam dated 10/25/09. Findings: Aneurysm is identified at the level of the renal arteries. This is seen on prior exam. This measures approximately 3.7 cm in AP dimension. This appears fairly stable from prior exam. There is some discontinuity of wall calcification being seen which is fairly stable from previous exam. Mural thrombus is seen. There appears to be a small outpouching area of contrast extending to the wall of the aneurysm. This puts patient at risk for future rupture. Distal aorta is ectatic. 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 No dissection is seen. Hiatal hernia is again noted. Liver shows a minimal area of hyperenhancement within the posterior right lobe which is felt to be incidental. Liver is otherwise unremarkable. Spleen appears normal. Adrenal glands show no nodule. Pancreas is within normal limits. Gallstones are seen within the gallbladder. 2 cysts are identified within the inferior left kidney. Largest cyst measures approximately 3.4 cm in size. Left kidney shows some cortical thinning. Minimal cortical cyst is noted within the right kidney measuring about 8 mm. Atherosclerotic calcification is seen within the proximal renal arteries. No retroperitoneal adenopathy or mesenteric abnormalities are seen. Appendix is seen which is normal. Small bladder diverticulum noted off the right side measuring 1.8 cm. Prostate gland is mildly enlarged and contains calcifications. Small incidental bilateral inguinal hernias are seen containing fat. Diverticuli seen within the descending and sigmoid colons without inflammatory change. Bone window settings were reviewed which show a compression deformity of L1, age of this is indeterminate. Degenerative change scattered within the lumbar spine. Degenerative change is also noted within both hips. Impression: 1. Upper abdominal aortic aneurysm at the level of the renal arteries. Overall size is stable from prior CT exam. Current study shows a small focal collection of contrast outside the opacified lumen extending to the wall of the anterior aorta. No acute aortic rupture is seen but this finding puts the patient at risk for future rupture. 2. Mild endplate concavities of L1, age is indeterminate. MRI would be needed to further age this finding if clinically needed. 3. Gallstones. 4. Small left common iliac artery aneurysm slightly increased in size from prior exam. 5. Other incidental findings as noted above. Diagnostic code #5 I agree with preliminary report issued by [facility] ([facility] report finalized on 09/24/16, 7:41 PM Central Time) --- Addendum1 signed ---
== END 2016-09-24 17:10 ==
LOC: JD.ED 12:54
DX: I71.4 Abdominal aortic aneurysm, without rupture (principal); S32.010A Wedge compression fracture of first lumbar vertebra, initial encounter for closed fracture; D64.89 Other specified anemias; I13.0 Hypertensive heart and chronic kidney disease with heart failure and stage 1 through stage 4 chronic kidney disease, or unspecified chronic kidney disease; N18.4 Chronic kidney disease, stage 4 (severe); I50.9 Heart failure, unspecified; R79.89 Other specified abnormal findings of blood chemistry; E78.00 Pure hypercholesterolemia, unspecified; K21.9 Gastro-esophageal reflux disease without esophagitis; J44.9 Chronic obstructive pulmonary disease, unspecified; M19.90 Unspecified osteoarthritis, unspecified site; Z98.49 Cataract extraction status, unspecified eye; Z95.1 Presence of aortocoronary bypass graft; Z85.89 Personal history of malignant neoplasm of other organs and systems; Z87.891 Personal history of nicotine dependence; Z79.82 Long term (current) use of aspirin; Z79.899 Other long term (current) drug therapy; X58.XXXA Exposure to other specified factors, initial encounter
CPT/HCPCS: 36415; 36430; 71010; 71260; 72131; 74177; 80053; 84484; 85025; 86850; 86900; 86901; 86922; 93005; 96374; 96376; 99285; A9270; J1170; J7030; J7040; J7050; P9016; Q9967; 99284

== ENCOUNTER 2016-10-31 00:29 | Emergency (ER) | payer MEDICARE, OTHER ==
[2016-10-31 00:45] VITALS: BP 152/64
[2016-10-31] MEDS ORDERED: HYDROmorphone 1 MG/ML Syringe IVPUSH ONE (01:11)
[2016-10-31] MEDS ORDERED: Promethazine 25 MG/ML SDV IM ONE (01:11)
--- NOTE | 2016-10-31 01:11 | EDM.PDOC ---
ED HPI GENERAL MEDICAL PROBLEM - General Chief Complaint: Lower Extremity Injury/Pain Stated Complaint: FEET HURT Time Seen by Provider: 10/31/16 01:05 Source of Information: Reports: Patient, Family (daughter and . ) History Limitations: Reports: Physical Impairment ( very hard of hearing. ) - History of Present Illness INITIAL COMMENTS - FREE TEXT/NARRATIVE: 86-year-old male presents to the ED due to severe pain in his lower extremities. He states he has pain all over but his legs are really acting up tonight. Patient by history has a combination of severe peripheral neuropathy as well as arterial insufficiency due to peripheral vascular disease. He describes the pain as burning wrenching type pain. States it is constant and it will not allow him to sleep tonight. By history his hydrocodone tablets were reduced from 2 tablets every 6 hours to 1 tablet every 6 hours about a week ago because he was exhibiting increased confusion and hallucinations at times. He is showing some signs of organic brain disease particular with short-term memory impairment. Onset: Other (Patient has chronic lower extremity pain from peripheral vascular disease and peripheral neuropathy. It is just worse tonight.) Duration: Chronic Location: Reports: Other (He states he has generalized pain in his whole body but his legs are worse and much worse pain tonight. He can state that one leg is worse than the other.) Quality: Reports: Ache, Burning, Same as Previous Episode, Stabbing, Throbbing Severity: Severe Improves with: Reports: None Worsens with: Reports: None, Other (Pain is usually worse at bedtime.) Context: Reports: Other (Severe peripheral vascular disease and peripheral neuropathy.). Denies: Activity, Exercise, Lifting, Sick Contact, Trauma Associated Symptoms: Reports: Confusion (Intermittent confusion but apparently improved since his medication hydrocodone was reduced from 2 tablets every 6 hours to 1 tablet. Unfortunately his pain is worse as well.), Malaise, Shortness of Breath. 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: Other (see below) Other Treatments SENIOR TECHNICAL WRITER: hydrocodone bilateral lower legs Pain Score (Numeric/FACES): 7 - Related Data Allergies Allergy/AdvReac Type Severity Reaction Status Date / Time No Known Allergies Allergy Verified 10/31/16 00:45 Home Meds: Home Meds Isosorbide Mononitrate [Imdur] 30 mg PO DAILY 06/13/16 [History] Nitroglycerin [Nitrostat] 0.4 mg SL ASDIRECTED PRN 06/13/16 [History] atorvaSTATin [Lipitor] 40 mg PO BEDTIME 06/13/16 [History] Acetaminophen/HYDROcodone [[place] 325-5 MG] 5 - 325 mg PO Q6H PRN 09/19/16 [ History] Carvedilol 6.25 mg PO BID 09/19/16 [History] Iron Polysaccharide Complex [Poly-Iron] 150 mg PO DAILY 10/31/16 [History] Pantoprazole Sodium [Protonix] 40 mg PO DAILY 10/31/16 [History] amLODIPine [Norvasc] 10 mg PO DAILY 10/31/16 [History] Past Medical History HEENT History: Reports: Hard of Hearing, Impaired Vision Cardiovascular History: Reports: CAD, Heart Failure, High Cholesterol, Hypertension, PVD (Severe peripheral peripheral vascular disease to both lower extremities.), SOB on Exertion Respiratory History: Reports: COPD Gastrointestinal History: Reports: GERD Genitourinary History: Reports: Chronic Renal Insuffiency Musculoskeletal History: Reports: Arthritis Neurological History: Reports: Neuropathy, Peripheral (Particularly to both lower extremities.) Oncologic (Cancer) History: Reports: Other (See Below) Other Oncologic History: lip cancer - Infectious Disease History Infectious Disease History: Reports: Mumps - Past Surgical History HEENT Surgical History: Reports: Cataract Surgery Cardiovascular Surgical History: Reports: Coronary Artery Bypass Oncologic Surgical History: Reports: Other (See Below) Dermatological Surgical History: Reports: None Social & Family History - Family History Family Medical History: Noncontributory - Tobacco Use Smoking Status *Q: Former Smoker Years of Tobacco use: 40 Packs/Tins Daily: 1 Used Tobacco, but Quit: No Month Tobacco Last Used: 40 years ago Second Hand Smoke Exposure: No - Caffeine Use Caffeine Use: Reports: Coffee - Alcohol Use Days Per Week of Alcohol Use: 0 - Recreational Drug Use Recreational Drug Use: No - Living Situation & Occupation Living situation: Reports: , with Spouse Occupation: Retired Review of Systems - Review of Systems Review Of Systems: See Below Constitutional: Reports: Weakness, Other (Fatigue from not being able to sleep.) Eyes: Reports: No Symptoms Ears: Reports: Other (Extremely hard of hearing chronically. He has not wear hearing aids.) Mouth/Throat: Reports: No Symptoms Respiratory: Reports: Shortness of Breath, Cough. Denies: Wheezing, Pleuritic Chest Pain (On exertion but no worse than his norm.), Hemoptysis (Occasional cough and sputum production but nothing new.) Cardiovascular: Denies: Chest Pain, Edema, Irregular Heart Rate GI/Abdominal: Reports: No Symptoms Genitourinary: Reports: Other (Nocturia usually 4. Known benign prostatic hypertrophy.) Musculoskeletal: Reports: Neck Pain, Shoulder Pain, Back Pain, Muscle Pain ( Complains of generalized joint and muscle pain.) Skin: Reports: No Symptoms Neurological: Reports: Paresthesia (More burning pain in his lower extremities.) , Difficulty Walking, Weakness. Denies: Dizziness, Headache, Numbness, Tingling , Trouble Speaking Psychiatric: Reports: Confusion (History of confusion and disorientation with hallucinations improved since reduction in Percocet medication a week ago. His dosage was decreased from 2 tablets every 6 hours to one tablet every 6 hours.) , Mood Lability, Hallucinations (Visual) (Reportedly by his he was experiencing hallucinations while on a higher dose of pain medication.). Denies : Suicidal Ideation ED EXAM, GENERAL - Physical Exam Exam: See Below Exam Limited By: Physical Impairment (Very hard of hearing. Understanding 20 talk louder close to his ears.) General Appearance: Alert, WD/WN, No Apparent Distress Eye Exam: Bilateral Eye: Normal Inspection Respiratory/Chest: No Respiratory Distress, No Accessory Muscle Use, Chest Non- Tender, Respiratory Distress (Mild tachypnea at rest with O2 sats of 93% on room air), Decreased Breath Sounds (Decreased air entry to the lower 30% of lungs bilaterally with occasional expiratory wheeze. No rales or crackles were identified.) Cardiovascular: Regular Rate, Rhythm, No Edema, No Gallop, No JVD. No: Normal Peripheral Pulses Peripheral Pulses: 0: Popliteal (L), Popliteal (R) (. Also popliteals were not palpable), Posterior Tibial (L) (Patient has no palpable pulses in either foot) , Posterior Tibial (R), Dorsalis Pedis (L), Dorsalis Pedis (R) Extremities: Other (The feet are cool to touch but certainly not cold and there is no evidence of arterial embolism.) Neurological: Sensory/Motor Deficit (Altered vibration sense and 2 point discrimination in his toes and feet bilaterally.) Skin Exam: Warm, Dry, Intact, Normal Color, No Rash Course - Vital Signs Last Recorded V/S: Last Vital Signs Temp 36.7 C 10/31/16 00:35 Pulse 94 10/31/16 00:35 Resp 20 10/31/16 00:35 BP 152/64 H 10/31/16 00:35 Pulse Ox 93 L 10/31/16 00:35 - Orders/Labs/Meds Meds: Medications Discontinued Medications Generic Name Dose Route Start Last Admin Trade Name Dex PRN Reason Stop Dose Admin Hydromorphone HCl 1 mg 10/31/16 01:11 10/31/16 01:15 Dilaudid IVPUSH 10/31/16 01:12 Not Given ONETIME ONE Hydromorphone HCl 1 mg 10/31/16 01:14 10/31/16 01:23 Dilaudid IM 10/31/16 01:15 1 mg ONETIME ONE Administration Promethazine HCl 12.5 mg 10/31/16 01:11 10/31/16 01:23 Phenergan IM 10/31/16 01:12 12.5 mg ONETIME ONE Administration - Radiology Interpretation Free Text/Narrative:: 86-year-old gentleman attends the ED complaining of worsening lower extremity pain than usual. Patient has chronic pain syndrome but chronic lower extremity pain is the worst. He has a combination of peripheral vascular disease and peripheral neuropathy clinically. Pain is worse tonight and he is unable to sleep. On examination he has no palpable pulses to either foot. They're both still quilted times but not cold or showing evidence of arterial occlusion. He has loss of vibration sense in 2 point discrimination suggesting neuropathy as well. Plan he is requesting a shot for pain so that he might be able to sleep. Given Dilaudid 1 mg IM and Phenergan 12.5 mg IM. He has a tolerance to narcotics as he takes Percocet 07/14/24 every 6 hours. He will be following up with Dr. Baugh sometime within the next month. It's unclear whether or not he's been tried on Trental or Lyrica o/ Neurontin to see if it will diminish his lower extremity pain syndrome. Departure - Departure Time of Disposition: 01:27 Disposition: Home, Self-Care 01 Condition: Fair Clinical Impression: Lower extremity pain, bilateral, Peripheral vascular disease of lower extremity Peripheral neuropathy Qualifiers: Peripheral neuropathy type: polyneuropathy, unspecified Qualified Code(s): G62.9 - Polyneuropathy, unspecified - Discharge Information Instructions: Peripheral Neuropathy Referrals: Justice Neumann MD [Primary Care Provider] - Forms: ED Department Discharge Additional Instructions: Evaluation in the emergency room tonight in regards to increased lower extremity pain much worse than normal. Neck pain syndrome evident. Recent reduction in Percocet tablets due to confusion and hallucinations. Pain in the lower extremities is secondary to poor blood supply to the lower extremities and feet which we call peripheral vascular disease combined with age related peripheral neuropathy which means that the nerves that supply the skin and other tissues are worn out and cause pain syndrome. You're given a pain shot tonight that will usually produce some degree of sedation and hopefully sleep tonight. Follow-up with Dr. Neumann as planned.
[2016-10-31] MEDS ORDERED: HYDROmorphone 1 MG/ML Syringe IM ONE (01:14)
== END 2016-10-31 01:35 | disposition home or self-care (01) ==
LOC: JD.ED 00:29
DX: G62.9 Polyneuropathy, unspecified (principal); I73.9 Peripheral vascular disease, unspecified; I25.10 Atherosclerotic heart disease of native coronary artery without angina pectoris; I13.0 Hypertensive heart and chronic kidney disease with heart failure and stage 1 through stage 4 chronic kidney disease, or unspecified chronic kidney disease; I50.9 Heart failure, unspecified; N18.9 Chronic kidney disease, unspecified; E78.00 Pure hypercholesterolemia, unspecified; J44.9 Chronic obstructive pulmonary disease, unspecified; K21.9 Gastro-esophageal reflux disease without esophagitis; Z95.1 Presence of aortocoronary bypass graft; Z79.899 Other long term (current) drug therapy; Z87.891 Personal history of nicotine dependence; Z98.49 Cataract extraction status, unspecified eye
CPT/HCPCS: 96372; 99283; J1170; J2550